=== PATIENT | female | born 2000 | race Caucasian/White ===

== ENCOUNTER 2024-05-07 11:52 | Emergency (ER) | payer MEDICAID, SELFPAY ==
--- NOTE | 2024-05-07 | ECG_ITS ---
Test Reason : DIZZY Blood Pressure : */* mmHG Vent. Rate : 64 BPM Atrial Rate : 64 BPM P-R Int : 144 ms QRS Dur : 100 ms QT Int : 388 ms P-R-T Axes : 50 23 26 degrees QTcB Int : 400 ms Normal sinus rhythm Cannot rule out Anterior infarct , age undetermined Abnormal ECG No previous ECGs available Referred By: Generic ED Physician Electronically Signed By: COLETTE LAMAS
[2024-05-07 12:19] VITALS: BP 142/85; PULSE 64; RESP 18; TEMP 37.1; O2SAT 99; BMI 38.7
--- NOTE | 2024-05-07 12:24 | ED_ITS ---
HPI - General Adult General Chief complaint: Dizziness Stated complaint: Dizziness, high BP Related Data Allergies Allergy/AdvReac Type Severity Reaction Status Date / Time No Known Allergies Allergy Verified 05/07/24 12:21 [facility] Social History Social History Advance Directives: No Advance Directives Information Provided: No Physical Exam ED Vital Signs: Vital Signs - 24 hr 05/07/24 12:19 Temperature 98.8 F Pulse Rate 64 Respiratory Rate 18 Blood Pressure 142/85 H Pulse Oximetry 99 Oxygen Delivery Method Room Air BMI result Body Mass Index 38.7 Course Course Course Narrative: This is a rapid medical exam performed by Raina Richter PA-C. 23-year-old female with a history of depression who presents with dizziness. Patient states she was not feeling well this morning, she felt dizzy and lightheaded. Patient states she had a low-grade temperature. Denies recent illness, nausea vomiting diarrhea or fever. We will be screening basic labs, and a viral swab. The patient is stable and can return to the waiting room pending her full medical assessment. Medical Decision Making Lab Data 05/07/24 12:37 05/07/24 12:37 Labs: Lab Results 05/07/24 Range/Units 12:37 WBC 7.1 (4.8-10.8) X10*3/uL RBC 4.87 (4.20-5.50) X10*6/uL Hgb 15.2 (12.0-16.0) g/dl Hct 43.2 (37.0-47.0) % MCV 88.7 (80.0-98.0) fL MCH 31.2 (27.0-33.0) pg MCHC 35.2 H (31.0-35.0) g/dl RDW 12.3 (11.0-16.0) % Plt Count 244 (160-400) X10*3/uL MPV 10.7 (9.4-12.3) fL Immature Gran % (Auto) 0.1 (0.0-0.4) % Neut % (Auto) 56.7 (45-73) % Lymph % (Auto) 33.1 (20-40) % Schleicher % (Auto) 7.0 (2-11) % Eos % (Auto) 2.4 (0-4) % Baso % (Auto) 0.7 (0-2) % Lymph # (Auto) 2.4 (1.2-4.9) X10*3/uL Schleicher # (Auto) 0.5 (0.1-1.2) X10*3/uL Eos # (Auto) 0.2 (0.0-0.4) X10*3/uL Baso # (Auto) 0.1 (0.0-0.2) X10*3/uL Abs Immat Gran (auto) 0.01 (0.00-0.03) X10*3/uL Absolute Neuts (auto) 4.0 (2.0-8.3) x10*3/uL Absolute Nucleated RBC 0.000 (0.0-0.012) X10*3/uL Nucleated RBC % (auto) 0.0 (0.0-0.2) /100WBC Sodium 139 (135-145) mmol/L Potassium 4.1 (3.3-5.1) mmol/L Chloride 107 (96-108) mmol/L Carbon Dioxide 25 (22-29) mmol/L Anion Gap 11 L (12-20) BUN 12 (9-16) mg/dL Creatinine 0.75 (0.5-1.4) mg/dL Estim Creat Clear Calc 123.9 Estimated GFR > 60 Random Glucose 88 (60-115) mg/dL Calcium 10.0 (8.4-10.2) mg/dL Magnesium 2.0 (1.6-2.6) mg/dL Total Bilirubin 1.1 H (0.0-1.0) mg/dL AST 15 (5-31) U/L ALT 15 (0-31) U/L Alkaline Phosphatase 72 (39-117) U/L Total Protein 7.9 (6.5-8.0) g/dL Albumin 4.3 (3.5-5.0) g/dL Beta HCG, Quant < 2 mIU/mL Influenza Type A (PCR) NEGATIVE (Negative) Influenza Type B (PCR) NEGATIVE (Negative) RSV RNA Qual (PCR) NEGATIVE (Negative) SARS-CoV-2 RNA (RT-PCR) NEGATIVE (Negative) Discharge Plan Discharge Clinical Impression: Dizziness Patient Disposition: Left W/O Completing Treatment Discharge Date/Time: 05/07/24 20:25
[2024-05-07 12:42] LABS: MANUAL DIFF FLAG NO
[2024-05-07 12:43] LABS: Basophils Absolute Auto 0.1 X10*3/uL (0.0-0.2); Basophils Percent Auto 0.7 % (0-2); Eosinophils Absolute Auto 0.2 X10*3/uL (0.0-0.4); Eosinophils Percent Auto 2.4 % (0-4); Hematocrit 43.2 % (37.0-47.0); Hemoglobin 15.2 g/dl (12.0-16.0); Imm Gran Abs Auto 0.01 X10*3/uL (0.00-0.03); Imm Gran Pct Auto 0.1 % (0.0-0.4); Lymphocytes Absolute Auto 2.4 X10*3/uL (1.2-4.9); Lymphocytes Percent Auto 33.1 % (20-40); Mean Corpuscular HGB Conc 35.2 g/dl (31.0-35.0); Mean Corpuscular Hemoglobin 31.2 pg (27.0-33.0); Mean Corpuscular Volume 88.7 fL (80.0-98.0); Mean Platelet Volume 10.7 fL (9.4-12.3); Monocytes Absolute Auto 0.5 X10*3/uL (0.1-1.2); Neutrophils Percent Auto 56.7 % (45-73); Platelet Count 244 X10*3/uL (160-400); Red Blood Count 4.87 X10*6/uL (4.20-5.50); Red Cell Distribution Width 12.3 % (11.0-16.0); White Blood Count 7.1 X10*3/uL (4.8-10.8)
[2024-05-07 13:05] LABS: Alanine Aminotransferase 15 U/L (0-31); Albumin Level 4.3 g/dL (3.5-5.0); Alkaline Phosphatase 72 U/L (39-117); Anion Gap 11 (12-20); Aspartate Amino Transferase 15 U/L (5-31); Bilirubin Total 1.1 mg/dL (0.0-1.0); Blood Urea Nitrogen 12 mg/dL (9-16); Carbon Dioxide 25 mmol/L (22-29); Chloride 107 mmol/L (96-108); Creatinine Clr Calc Pharmacy 123.9; Estimated Glomerular Filt Rate > 60; Glucose Random 88 mg/dL (60-115); HCG Quantitative < 2 mIU/mL; Potassium 4.1 mmol/L (3.3-5.1); Sodium 139 mmol/L (135-145); Total Protein 7.9 g/dL (6.5-8.0)
[2024-05-07 13:26] LABS: Influenza A PCR NEGATIVE (Negative); Influenza B PCR NEGATIVE (Negative); Resp Syncy Virus RNA Qual PCR NEGATIVE (Negative); SARS COV2 PCR INHOUSE NEGATIVE (Negative)
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
--- OUTSIDE RECORDS SUMMARY | 2024-05-07 20:16 | XMS_ITS | Encounter Summary ---
Author Organization [facility] Address [address] [place] [address] Care Team Providers Care Banjo Repair Person Name Role Phone Stella Jara MD Primary Care Pr ovider Encounter Details Date Type Department Care Team (Late st Contact Info) Description 05/07/2024 Nurse Triage Adult Medicine [address] [phone] Ilana Dillard, RN Social History Tobacco Use Types Packs/Day Years Used Date Smoking Tobacco: Never Smokeless Tobacco: Never Alcohol Use Standard Drinks/Week Comments Yes 0 (1 standard drink = 0.6 oz pur e alcohol) Comments Unknown Sex and Gender Information Value Date Recorded Sex Assigned at Not on file Legal Sex Female 10:04 PM EST Gender Identity Not on file Sexual Orientation Not on file documented as of this encounter Progress Notes * Ilana Dillard RN - 05/07/2024 11:15 AM EST Noted. * Stella Jara MD - 05/07/2024 11:05 AM EST Agree with ER evaluation. Thank you * Ilana Dillard RN - 05/07/2024 10:51 AM EST Pt received in the holding unit. She is complaining of dizziness upon waking up this morning. No s/s of URI. She reports diarrhea. Her VS as of 10:50 am are as follows: 143/93, 67, 100% RA, 16, 99.5 degrees. She was instructed to go to the ER for further evaluation and treatment. She is in agreement with this plan and states she will [facility] to [facility]. Her Mom or her friend will pick her up and bring her to the ER. Reason for Disposition SEVERE dizziness (e.g., unable to stand, requires support to walk, feels like passing out now) Answer Assessment - Initial Assessment Questions 1. DESCRIPTION: Describe your dizziness. She states when she woke up this morning she felt light headed. 2. LIGHTHEADED: Do you feel lightheaded? (e.g., somewhat faint, woozy, weak upon standing) She states she feels weak and is reporting lethargy 3. VERTIGO: Do you feel like either you or the room is spinning or tilting? (i.e., vertigo) No 4. SEVERITY: How bad is it? Do you feel like you are going to faint? Can you stand and walk? - MILD: Feels slightly dizzy, but walking normally. - MODERATE: Feels unsteady when walking, but not falling; interferes with normal activities (e.g., school, work). - SEVERE: Unable to walk without falling, or requires assistance to walk without falling; feels like passing out now. Moderate 5. ONSET: When did the dizziness begin? This AM 6. AGGRAVATING FACTORS: Does anything make it worse? (e.g., standing, change in head position) Standing. Sitting in front of computer 7. HEART RATE: Can you tell me your heart rate? How many beats in 15 seconds? (Note: Not all patients can do this.) HR 77 8. CAUSE: What do you think is causing the dizziness? (e.g., decreased fluids or food, diarrhea, emotional distress, heat exposure, new medicine, sudden standing, vomiting; unknown) Decreased food, new medication (Sertraline), emotional distress, diarrhea 9. RECURRENT SYMPTOM: Have you had dizziness before? If Yes, ask: When was the last time? Whathappened that time? No 10. OTHER SYMPTOMS: Do you have any other symptoms? (e.g., fever, chest pain, vomiting, diarrhea,bleeding) Diarrhea 3 times in past 24 hours. Normally has 1 BM in 24 hours. T 99.5 11. : Is there any chance you are ? When was your last menstrual period? No. Her LMP was 04/17/24 Protocols used: Dizziness - [id number] documented in this encounter Plan of Treatment Not on file documented as of this encounter Visit Diagnoses Not on filedocumented in this encounter Care Teams Banjo Repair Person Relationship Specialty Start Date End Date Stella Jara MD PCP - General 02/27/23 documented as of this encounter
== END 2024-05-07 20:25 | disposition left against medical advice (07) ==
LOC: HO.ED 20:14
PROVIDERS: Physician Assistant Medical; Emergency Provider Emergency Medicine; PCP Family Medicine
DX: R42 Dizziness and giddiness (principal); R03.0 Elevated blood-pressure reading, without diagnosis of hypertension; R94.31 Abnormal electrocardiogram [ECG] [EKG]; Z03.818 Encounter for observation for suspected exposure to other biological agents ruled out; Z79.899 Other long term (current) drug therapy
CPT/HCPCS: 0241U; 36415; 80053; 83735; 84702; 85025; 93005; 99283

== ENCOUNTER → 2024-05-07 12:03 | Outpatient (BNV) | payer MEDICAID, SELFPAY | PROVIDERS: PCP Family Medicine; Visit Provider Internal Medicine | DX: R94.31 Abnormal electrocardiogram [ECG] [EKG] (principal); R42 Dizziness and giddiness | CPT/HCPCS: 93010 ==

== ENCOUNTER → 2024-12-09 12:45 | Outpatient (BNV) | payer OTHER, SELFPAY | PROVIDERS: Visit Provider Psychiatry & Neurology Psychiatry | DX: F33.1 Major depressive disorder, recurrent, moderate (principal); F98.8 Other specified behavioral and emotional disorders with onset usually occurring in childhood and adolescence | CPT/HCPCS: 99499 ==

== ENCOUNTER 2024-12-31 12:45 | Outpatient (RCR) | payer OTHER, SELFPAY ==
[2024-12-08 11:21] VITALS: BP 122/80; PULSE 60; TEMP 36.7
[2024-12-08 11:25] VITALS: BMI 40.6
--- NOTE | 2024-12-08 15:32 | PC.ADMIT ---
Patient is a 24 year old single female who was referred to [facility] by her brother who previously attended [facility]. Patient reports she is struggling with sxs of depression and anxiety. She reports work related stresses along with family stresses and grieving the loss of her brother. Patient lives with her mother who patient reports is somewhat supportive. She is taking a CHANG from work to work on her mental health. Patient is alert and oriented x4. She is calm and cooperative. Patient presents with depressed mood and anxious affect. She denied Si, no HI she was given a copy of her safety plan if needed. Medications updated with patient and patient's pharmacy. She reports taking medications as prescribed.
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
--- NOTE | 2024-12-09 15:15 | HO.PHP ---
Client's case was opened and reviewed in teams.
--- NOTE | 2024-12-13 08:50 | HO.PHP ---
PHP admin, Yazmin, informed the team that Chrissy will not be in attendance to program due to feeling unwell. There were no safety concerns presented at the time of the call.
--- NOTE | 2024-12-24 19:15 | HO.PHPPROGNO ---
Subjective Subjective Date of Service: 12/24/24 Reason For Visit: anxiety,depression Interim History: Here for depression and anxiety. Recent increase to ZOloft in early December. No noted improvement yet. Finds ZOloft suppresses appetite. Sleep is fair but stable, regularly gets 5-6 hours of sleep. Takes MPH ER daily, dakes PRN infrequently, does not feel this affects sleep. Denies any suicidal thoughts or thoughts of shanna kitchen on life. Anxiety persists both cognitive and somatic anxiety. Denies any issues with her physical health. regular marijuana use, most evenings. No interim alcohol. Denies any illicit substanse use. Sees OP psych provider at end of Dec Medication Compliance: Yes Side effects from medications: No Attending Groups: Yes Review of Systems Acute medical concerns: No Mental Status Exam Mental Status Exam Narrative: Chrissy was seen for the evaluation today. She is alert, oriented and pleasant. Normal speech. Good eye contact. Affect is appropriate and constricted. No acute signs of psychosis. No restlessness. Denies any SI/HI. Cognitively is intact. She is able to move all limbs. No gait abnormalities. Judgment is intact Diagnostics Vital Signs (24Hr): BMI result Body Mass Index 40.6 Assessment & Plan Assessment & Plan (1) Major depression, recurrent: Status: Acute Code(s): F33.9 - Major depressive disorder, recurrent, unspecified (2) Attention deficit disorder (ADD): Status: Acute Code(s): F98.8 - Other specified behavioral and emotional disorders with onset usually occurring in childhood and adolescence Plan continue PHP start Wellbutrin XL 150 mg qam start guanfacine ER 1 mg qam continue MPH ER 36 mg qam continue MPH IR 5 mg qd prn focus/attn continue sertraline 50 mg qd continue regular medications for now Routine lab work reviewed in emr (04/2024) EKG, routine for baseline QTc for medication considerations as indicated UDS as indicated VS reviewed (12/08): afebrile, BP 122/80;?60 bpm engage in milieu therapy Continue to monitor Patient educated on: diagnosis, medication risk/benefits and substance abuse Informed Consent: understands Reason for contiued partial hosp. stay Substantial Risk for: med/psych decompensation Certification I certify that partial hospital treatment is medically necessary due to the symptoms and problems resulting from the patient's mental illness and the failure to treat the patient at the partial hospital level of care would likely result in the patient requiring inpatient psychiatric care which could not be prevented at a less intensive level of care. Total time managing care of this patient today _30___ minutes. Discharge Plan Discharge Attending provider: Billie Lin Medications: New bupropion HCl [Wellbutrin XL] 150 mg tablet extended release 24 hr 150 mg PO QAM Qty: 14 0RF guanfacine 1 mg tablet extended release 24 hr 1 mg PO DAILY Qty: 14 0RF Continued sertraline 50 mg tablet 25 - 50 mg PO QAM Rx Instructions: TAKE 1/2-1 TABLET BY MOUTH EVERY MORNING DIRECTED methylphenidate HCl 36 mg tablet extended release 24hr 36 mg PO QAM No Action methylphenidate HCl 5 mg tablet 5 mg PO DAILY Print Language: Telugu
--- NOTE | 2024-12-31 22:46 | P.PNPSP_ITS ---
Subjective Subjective Date of Service: 12/31/24 Reason For Visit: anxiety,depression Interim History: Patient seen for follow-up, anticipating discharge at the end of program today.? Feeling good. Calm, stable . She will be following up with her outpatient provider Gwyn Spence on 01/16. Reports no acute issues or concerns. Medication compliant, medications well- tolerated. Denies any adverse effects.? Mood is stable.? Denies any hopelessness or SI. Denies thoughts of harming self or others at this time. Denies any aggressive ideation or HI. Denies any paranoia or AH or VH. Sleep, appetite, energy stable. Mental Status Exam Mental Status Exam Narrative: Alert, oriented, in no acute distress. Calm, cooperative. Mood stable, affect appropriate. Speech normal. Thought process linear, coherent, more goal- directed. Thought content related to stressors, future-oriented, denies any helplessness, hopelessness or SI.? No aggressive ideation or HI. No paranoia or delusional content elicited. No evidence of psychosis. Insight and judgment fair-good. Diagnostics Vital Signs (24Hr): BMI result Body Mass Index 40.6 Assessment & Plan Assessment & Plan (1) Major depression, recurrent: Status: Acute Code(s): F33.9 - Major depressive disorder, recurrent, unspecified (2) Attention deficit disorder (ADD): Status: Acute Code(s): F98.8 - Other specified behavioral and emotional disorders with onset usually occurring in childhood and adolescence Plan Discharge from [facility] Continue regular medications? Refills sent to pharmacy Will defer further medication management to outpatient provider *Safety plan reviewed *Discharge diagnoses, treatment course, discharge plan have been reviewed with patient (including medication regime, medication management, potential side effects) as well as treatment rationale were also revisited *Discharge paperwork signed and given to patient, copy sent for scanning to chart Patient educated on: diagnosis and medication risk/benefits Informed Consent: understands Reason for contiued partial hosp. stay Substantial Risk for: stable for discharge Certification I certify that partial hospital treatment is medically necessary due to the symptoms and problems resulting from the patient's mental illness and the failure to treat the patient at the partial hospital level of care would likely result in the patient requiring inpatient psychiatric care which could not be prevented at a less intensive level of care. Total time managing care of this patient today _30___ minutes. Discharge Plan Discharge Attending provider: Billie Lin Medications: New bupropion HCl [Wellbutrin XL] 150 mg tablet extended release 24 hr 150 mg PO QAM Qty: 14 0RF guanfacine 1 mg tablet extended release 24 hr 1 mg PO DAILY Qty: 14 0RF Continued sertraline 50 mg tablet 25 - 50 mg PO QAM Rx Instructions: TAKE 1/2-1 TABLET BY MOUTH EVERY MORNING DIRECTED methylphenidate HCl 36 mg tablet extended release 24hr 36 mg PO QAM No Action methylphenidate HCl 5 mg tablet 5 mg PO DAILY Patient Education: Depression (ED), Depression (DC) Print Language: Gibraltarian
== END 2024-12-31 23:59 | disposition home or self-care (01) ==
LOC: HO.PHPA 12:45
PROVIDERS: Visit Provider Psychiatry & Neurology Psychiatry
DX: F33.9 Major depressive disorder, recurrent, unspecified (principal); F98.8 Other specified behavioral and emotional disorders with onset usually occurring in childhood and adolescence; Z79.899 Other long term (current) drug therapy
CPT/HCPCS: 90791; 90853

== ENCOUNTER 2025-02-16 21:37 | Emergency (ER) | payer OTHER, SELFPAY ==
--- NOTE | ~2025-02-16 | XR_ITS ---
CLINICAL HISTORY: Fx friday,. worse pain 3 view right ankle Comparison: None provided Findings: There is a small ossific fragment along the lateral aspect of the talus as well as a 2nd small ossific fragment along the lateral aspect of the calcaneus. There is a curvilinear ossific density at the inferior aspect of the medial malleolus. No significant arthritic change or erosions. No ankle effusion. No radiopaque foreign body. Bimalleolar ankle swelling. Ankle mortise is in anatomic alignment. IMPRESSION: Suspect there are small avulsion fractures from the lateral talus, lateral calcaneus and the inferior aspect of the medial malleolus. This document has been electronically signed by: Miguel Reveles MD on 02/17/2025 01:06:17
[2025-02-16 21:40] VITALS: BP 137/81; PULSE 106; RESP 20; TEMP 36.1; O2SAT 100; BMI 40.2
[2025-02-16 23:23] VITALS: BP 130/76; PULSE 81; RESP 16; TEMP 36.5; O2SAT 96
--- OUTSIDE RECORDS SUMMARY | 2025-02-16 23:33 | XMS_ITS | Clinical Summary ---
Author Organization [facility] Address [address] [place] [address] Phone Care Team Providers Care Night Shift Supervisor Name Role Phone Stella Jara MD Primary [...] A RING FOR 7 DAYS 4 Active methylphenidate 36 mg ER tablet Take 1 tablet (36 mg total) by mouth 1 (one) time each day. 2 Active methylphenidate (RITALIN) 5 mg tablet Take 1 Tablet by mouth daily for 30 days. Q 3PM 2 Active traZODone (DESYREL) 50 mg tablet Take 1 tablet (50 mg total) by mouth at bedtime. 9 Active ibuprofen (ADVIL,MOTRIN) 800 mg tablet Take 1 Tab by mouth every 8 hours as needed for Pain. 7 Active sertraline (ZOLOFT) 50 mg tablet Take 1 tablet (50 mg total) by mouth 1 (one) time each day. 5 Active ergocalciferol (VITAMIN D-2) 1,250 mcg (50,000 unit) capsule Take 1 capsule (50,000 Units total) by mouth 1 (one) time per week. 8 capsule 5 Active Active Problems Problem Noted Date Diagnosed Date Elevated BP without diagnosis of hypertension Chlamydia infection 06/20/2023 Vitamin D deficiency 06/09/2023 [...] Encounters Date Type Department Care Team Description 12/16/2024 Telephone [facility] Cardiology [facility] [address] [place] [address] Stella Jara MD from Last 3 Months Immunizations Immunization Administration Dates Next Due DTaP (Infanrix) 6wks to less than 7yo ,11/14/2000,06/12/1999,04/06,01/16/1999 [id number] (Pentacel) 2mo to less than 5yo 02/26/2000,06/12/1999,04/06/1999,01/16 [...] yrs UPPER GASTROINTESTINAL ENDOSCOPY -2016 2017 PROCEDURE: MI UPPER GI ENDOSCOPY PERFORMED COLONOSCOPY 09/16/2019 PROCEDURE: [...] Date Smoking Tobacco: Never Smokeless Tobacco: Never Tobacco Cessation:Counseling Given: Not Answered Alcohol Use Standard Drinks/Week Comments Yes 0 (1 standard drink = 0.6 oz pur e alcohol) Comments No Sex and Gender Information Value Date Recorded Sex Assigned at Not on file Legal Sex Female 10:04 PM EST Gender Identity Not on file Sexual Orientation Not on file Obstetrics History Last Filed Vital Signs Vital Sign Reading Time Taken Comments Blood Pressure 140/88 05/26/2024 2:11 PM EDT Pulse 68 05/21/2024 11:57 AM EST Temperature 36.9 C (98.5 F) 05/21/2024 11:50 AM EST Respiratory Rate 14 05/21/2024 11:57 AM EST Oxygen Saturation 99% 05/21/2024 11:57 AM EST Inhaled Oxygen Concentration - - Weight 99.8 kg (220 lb) 05/26/2024 2:11 PM EDT Height 160 cm (5' 3 ) 05/26/2024 2:11 PM EDT Body Mass Index 38.97 05/26/2024 2:11 PM EDT Plan of Treatment Health Maintenance Due Date Last Done Comments Social Influencers of Health Screening 02/23/2022 Depression Screening 03/17/2024 05/15/2023 Colorectal Cancer Screening: Colonoscopy 09/15/2024 09/16/2019 COVID-19 Vaccine ( season) 2024 04/20/2021, 06/22/2020 Influenza Vaccine (#1) 2024 , 11/27/2022, 01/03/2016, Additional history exists Cervical Cancer Screening: Pap Smear 06/19/2026 06/20/2023, 06/20/2023, 01/24/2020 Cholesterol Screening (Lipid Panel) 06/05/2028 06/06/2023 DTaP,Tdap,and Td Vaccines (8 - Td or Tdap) 01/22/2031 01/22/2021, 10/31/2010, 11/29/2002, Additional history exists RSV Immunization Adult Patients (1 - 1-dose 75+ series) 2073 HIB Vaccines Completed 02/26/2000, 05/16, 04/06/1999, Additional [...] 5 Years) and At-Risk Patients (6 to 49 Years) Completed 04/19/2019, 02/26/2000, 11/27/1999 Gonorrhea/Chlamydia Screening Discontinued 08/27/2023 HIV Screening Completed 08/28/2023, 08/28/2023 Hepatitis C Screening Completed 08/28/2023 Meningococcal B Vaccine Aged Out No l onger eligible based on patient's age to complete this topic RSV Immunization Patients Under 20 months Aged Out No longer eligible based on patient's age to complete this topic Procedures Procedure Name Priority Date/Time Associated Diagnosis Comments HM HEPATITIS C SCREENING Routine 08/28/2023 HM HIV SCREENING Routine 08/28/2023 HM GONORRHEA/CHLAMYDIA SCRREENING Routine 08/27/2023 PAP SMEAR Routine 06/20/2023 LIPID PANEL Routine 06/06/2023 DEPRESSION SCREENING Routine 05/15/2023 COLONOSCOPY Routine 09/16/2019 from Last 3 Months or Most Recently Relevant to Health Maintenance Results * HIV Screening (08/28/2023) HIV Screening abstracted [facility] Provider MD HEALTH MAINTENANCE Final Result * Hepatitis C Screening (08/28/2023) Hepatitis C Screening abstracted [facility] Provider MD HEALTH MAINTENANCE Final Result * Gonorrhea/Chlamydia Screening (08/27/2023) Gonorrhea/Chla mydia Screening abstracted [facility] Provider HEALTH MAINTENANCE Final Result * Pap smear (06/20/2023) 06/20/2023 Narrative HISTORICAL TESTING LAB RESULTING AGENCY - 06/25/2023 11:25 AM EDT [id number] THINPREP PAP, IMAGED: NEGATIVE FOR SQUAMOUS INTRAEPITHELIAL LESION AND MALIGNANCY RONY KUNZ(ASCP) (CASE ELECTRONICALLY SIGNED 06 25 2023) ADEQUACY: SATISFACTORY ENDOCERVICAL/TRANSFORMATION ZONE COMPONENT ABSENT. SOURCE: THINPREP PAP HPV IF ASCUS, CERVICAL, IMAGED CLINICAL INFORMATION: HPV IF DIAGNOSIS OF ASCUS. PAP HX NEGATIVE, [Z01.419]. Aracelis [facility] LAB CYTOLOGY ORDERABLES Fin al Result HISTORICAL TESTING LAB RESULTING AGENCY * Lipid panel (06/06/2023) LDL/HDL Ratio 2 0 - 4 Triglycerides 57 0 - 150 mg/dL Cholesterol 130 0 - 200 mg/dL HDL 65 >=40 mg/dL LDL Cholesterol 54 0 - 100 mg/dL Blood Venous blood specimen / Unknown Historical Provider LAB BLOOD ORDERABLES Yu l Result * Depression Screening (05/15/2023) Depression Screening abstracted Historical Provider HEALTH MAINTENANCE Final Result * Colonoscopy (09/16/2019) Colonoscopy abstracted, no interpretation Anatomical Region Laterality Modality Other Historical Provider HEALTH MAINTENANCE Final Result from Last 3 Months or Most Recently Relevant to Health Maintenance Insurance [facility] Care Teams Night Shift Supervisor Relationship Specialty Start Date End Date Stella Jara MD [address] [place] [address] PCP - General 02/27/23
--- OUTSIDE RECORDS SUMMARY | 2025-02-16 23:33 | XMS_ITS | Clinical Summary ---
Author Organization [facility] Address [address] [place] [address] Care Team Providers Care Histology Manager Name Role Phone Unavailable Primary Care Provider Unavailabl e Social History Tobacco Use Types Packs/Day Years Used Date Smoking Tobacco: Never Assessed Comments Unknown Sex and Gender Information Value Date Recorded Sex Assigned at Not on file Legal Sex Female 1:46 PM EST Gender Identity Not on file Sexual Orientation Not on file Plan of Treatment Health Maintenance Due Date Last Done Comments Depression Screening 1998 HIV Screening 1998 Lipid Panel 1998 Disability Screening 1998 Alcohol/Substance Use Screening 2010 Tobacco Screening 2010 Family Planning (PISQ) 2013 Hepatitis C Screening 2016 Pap Smear 11/13/2019 COVID-19 Vaccine ( season) 2024 Influenza Vaccine (#1) 2024 , 01/03/2016, 04/26/2015 DTaP/Tdap/Td Vaccines (8 - Td or Tdap) 01/22/2031 01/22/2021, 10/31/2010, 11/29/2002, Additional history exists Zoster Vaccines (1 of 2) 2048 RSV Patients and Patients Aged 60 years or older (1 - 1-dose 75+ series) 2073 HIB Vaccines Completed 02/26/2000, 05/16, 04/06/1999, Additional history exists Hepatitis B Vaccines Completed 11/14/2000, 09/12/1999, 06/12/1999 IPV Vaccines Completed 11/29/2002, 02/14, 06/12/1999, Additional history exists HPV Vaccines Completed 03/04/2012, 12/16, 10/31/2010 Hepatitis A Vaccines Completed 04/07/2013, 11/01/19 11 Meningococcal Vaccine Completed 04/26/2015, 011 Pneumococcal Vaccine: Pediatrics (0 to 5 Years) and At-Risk Patients (6 to 49) Years Aged Out 04/19/2019, 02/26/2000, 11/27/1999 No longer eligible based on patient's age to complete this topic Meningococcal B Vaccine Aged Out No l onger eligible based on patient's age to complete this topic RSV under 20 months Aged Out No longe r eligible based on patient's age to complete this topic Rotavirus Vaccines Aged Out No longer eligible based on patient's age to complete this topic
--- OUTSIDE RECORDS SUMMARY | 2025-02-16 23:33 | XMS_ITS ---
Author Name [facility] Organization Unknown Care Team Organization Name Specialty Phone Email Start Date End Da te [facility] Termed, PROVIDER Primary Care 01/22/202210/15
--- NOTE | 2025-02-17 00:40 | ED.LOWEXIN ---
HPI - Extremity Injury (Lower) General Chief Complaint: Extremity Injury, Lower Stated Complaint: right foort injury Time Seen by Provider: 02/16/25 23:22 History of Present Illness ED Provider: soha HPI Narrative: 24-year-old female with inversion rolling of the ankle fell down a few steps. No other injuries. She was seen at urgent care, placed in a boot. She's primarily coming in for lack of pain control at home with Tylenol and ibuprofen. She's requesting expedited orthopedic follow-up. She presents with a disk in hand. Related Data Home Medications ?Medication ?Instructions ?Recorded ?Confirmed methylphenidate HCl 36 mg 36 mg PO QAM 12/08/24 12/08/24 tablet,extended release 24 hr methylphenidate HCl 5 mg tablet 5 mg PO DAILY 12/08/24 12/08/24 sertraline 50 mg tablet 25 - 50 mg PO QAM 12/08/24 12/08/24 Previous Rx's ?Medication ?Instructions ?Recorded bupropion HCl 150 mg 24 hr tablet, 150 mg PO QAM #14 tabs 12/24/24 extended release (Wellbutrin XL) guanfacine 1 mg tablet,extended 1 mg PO DAILY #14 tabs 12/24/24 release 24 hr morphine 15 mg immediate release 15 mg PO BID PRN pain #5 tabs 02/17/25 tablet Allergies Allergy/AdvReac Type Severity Reaction Status Date / Time No Known Allergies Allergy Verified 02/16/25 21:44 [facility] Past Medical History Medical History (Updated 02/18/25 @ 00:01 by Background Daemon) No known health problems Social History Social History Household Members: Family Patient Tobacco Use Status: Former Tobacco user Tobacco use type: Cigarette Substance Use Type: Marijuana Physical Exam Exam: Exam: General: awake, alert, oriented, looks well. Skin: intact MSK: right ankle, mild swelling, bimalleolar tenderness, minimal swelling of the dorsolateral foot. Well perfused, 2+ DP and PT pulses, no skin breaks, no instability of the ankle, calcaneus mildly tender. Vital Signs: Vital Signs: Last Vital Signs Temp 97.7 F 02/17/25 01:31 Pulse 81 02/17/25 01:31 Resp 16 02/17/25 01:31 BP 130/76 02/17/25 01:31 Pulse Ox 96 02/17/25 01:31 O2 Del Method Room Air 02/17/25 01:31 BMI result Body Mass Index 40.2 Medications Administered Discontinued Medications Generic Name Dose Route Start Last Admin Trade Name Shyann PRN Reason Stop Dose Admin Ibuprofen 600 mg 02/17/25 00:28 02/17/25 01:02 Ibuprofen 600 Mg Tablet PO 02/17/25 00:29 600 mg ONCE ONE Administration Morphine Sulfate 15 mg 02/17/25 00:28 02/17/25 01:02 Morphine Sulfate Immed Release 15 Mg Tablet PO 02/17/25 00:29 15 mg ONCE ONE Administration Medical Decision Making Medical Decision Making MDM Narrative: Medical Decision Making: [age] female with injury from work twisted rolled right ankle. X-rays repeated today because of increasing pain. Minimal bimalleolar chip fractures seen. Stable intact mortise. Neurovascularly intact right lower extremity. No calf tenderness no objective edema Preliminary Favored Differential Diagnosis: Ankle fracture, ankle sprain among additional considered etiologies Testing Interpreted Independently: ?See below for details Radiology or Lab testing Results Reviewed: ?See below for details Consults: ?See below for details Independent Historians/External Chart Reviews: ?See below for details Social Determinants of Health Impacting MDM/Planning: ?See below for details Discharge Plan Discharge Clinical Impression: Ankle fracture Patient Disposition: Home, Self-Care Instructions: Ankle Fracture (DC) Additional Instructions: Your ankle fracture is minimal and stable. Continue wearing the boot call our orthopedics for follow up I recommend using ibuprofen 600-800 mg every 6 hours as needed neck to extend beyond a week of daily use. Ice elevate. Morphine only as needed for severe pain or before bed Prescriptions: New morphine 15 mg tablet 15 mg PO BID PRN (Reason: pain) Qty: 5 0RF Rx Instructions: Partial Fill upon patient request. No Action methylphenidate HCl 5 mg tablet 5 mg PO DAILY sertraline 50 mg tablet 25 - 50 mg PO QAM Rx Instructions: TAKE 1/2-1 TABLET BY MOUTH EVERY MORNING DIRECTED methylphenidate HCl 36 mg tablet extended release 24hr 36 mg PO QAM bupropion HCl [Wellbutrin XL] 150 mg tablet extended release 24 hr 150 mg PO QAM Qty: 14 0RF guanfacine 1 mg tablet extended release 24 hr 1 mg PO DAILY Qty: 14 0RF Stand Alone Forms: Work/School Release Interventions: ED Discharge Assessment Last Done: 02/17/25 01:31 Discharge Date/Time: 02/17/25 01:32 Print Language: Andorran
[2025-02-17] MEDS: Morphine Sulfate Immed Release 15 MG TABLET PO (01:02)
[2025-02-17 01:31] VITALS: BP 130/76; PULSE 81; RESP 16; TEMP 36.5; O2SAT 96
== END 2025-02-17 01:32 | disposition home or self-care (01) ==
PROVIDERS: Emergency Provider Emergency Medicine
DX: S92.144A Nondisplaced dome fracture of right talus, initial encounter for closed fracture (principal); W10.9XXA Fall (on) (from) unspecified stairs and steps, initial encounter; Y93.9 Activity, unspecified; Y92.9 Unspecified place or not applicable
CPT/HCPCS: 73610; 99283; 99284

== ENCOUNTER → 2025-02-17 00:28 | Outpatient (BNV) | payer OTHER, SELFPAY | PROVIDERS: Emergency Provider Emergency Medicine; Visit Provider Radiology Diagnostic Radiology | DX: M25.571 Pain in right ankle and joints of right foot (principal) | CPT/HCPCS: 73610 ==

== ENCOUNTER 2025-03-01 12:50 | Outpatient (AMB) | payer OTHER, SELFPAY ==
--- NOTE | 2025-03-01 12:53 | MHC.OFFVIS ---
Intake Visit Reasons: ED - right ankle injury, DOI 02/14/25 Intake Note: Chrissy is a 24 year old female who presents today for a fracture care appointment of her RT ankle injury DOI 02/14/25. Patient reports she was walking down the stairs at work and she doesn't know if her knee gave out or popped out of place which made her fall down the stairs. She mentions that her pain is on the lateral aspect of the foot and ankle. Allergies No Known Allergies Allergy (Verified 03/01/25 12:53) HPI Comments Details: History of Present Illness The patient is a 24 year old female presenting for evaluation of a right ankle injury that occurred on February 14. She reports falling down the stairs. Patient presented to an urgent care where she was told she had small avulsion fractures. She was given a short walking boot and crutches. The patient has been non-weight bearing since the injury. She continues to experience significant swelling and describes the ankle as feeling tight . She has been managing her pain with ibuprofen 600mg po every 8 hours. Pain Description - Onset: The pain began after a fall down the stairs on February 14. - Location: Pain is located in her right heel and another unspecified area of the ankle. - Quality: The sensation is described as the joint feeling tight . - Associated Symptoms: The pain is associated with significant swelling. - Interference with Function: The pain interferes with sleep. [facility] Medical History (Updated 02/18/25 @ 00:01 by Background Daemon) No known health problems Social History Household Members: Family Patient Tobacco Use Status: Former Tobacco user Tobacco use type: Cigarette Substance Use Type: Marijuana Review of Systems Narrative Review of Systems - Musculoskeletal: Reports right ankle pain, severe swelling, and a sensation of the joint feeling tight and locked . - Neurological: Reports a tingly sensation in the foot. - Constitutional: Reports difficulty sleeping due to pain. Const All systems reviewed & are unremarkable except as noted in HPI and below Physical Exam Exam Exam: Physical Exam - Right Lower Extremity: Inspection reveals moderate edema of the ankle and foot. - There is tenderness to palpation over all anatomical landmarks of the ankle, proximal foot and Achilles. - Achilles tendon is palpable with no obvious defect. - Active range of motion is limited but she is able to demonstrate slight dorsiflexion and plantar flexion. - She is able to move all digits. - Sensation to light touch is intact. - Pedal pulse intact. Const General: cooperative, healthy appearing and no acute distress Resp Effort & Inspection: normal respiratory effort and able to speak in complete sentences Psych Appearance: grossly normal Mental Status: mental status grossly normal Attitude: cooperative Assessment & Plan Assessment & Plan (1) Ankle fracture: Code(s): S82.899A - Other fracture of unspecified lower leg, initial encounter for closed fracture Category: Medical Plan 1. Right Ankle Fracture With Moderate Edema The patient's significant pain and swelling are out of proportion to the avulsion fractures noted on her x-rays, raising concern for a possible occult fracture. The plan is to obtain a stat CT scan of the right ankle to further evaluate the bone integrity. The patient will be placed in a taller walking boot which was fit to the patient off the shelf today to minimize levering at the ankle Which may be increasing her pain. The patient is instructed to remain strictly non-weight bearing until the CT results are reviewed. For swelling management, she is advised to elevate her leg above the level of her heart while lying down. For pain control, she can increase her ibuprofen dose to 800 mg up to four times daily and may alternate with Tylenol. A work excuse note and a prescription for a shower chair will be provided. Patient will follow up after the CT scan is obtained, sooner if needed. X-rays of the right ankle obtained on 02/17/2025 reveal small avulsion fractures from the lateral talus, lateral calcaneus and the inferior aspect of the medial malleolus. Consent: Patient was informed and verbally consented to the use of an ambient scribe for clinic note documentation during this visit. Orders: Orders CT ankle RT wo IV con Today S82.899A - Other fracture of unspecified lower leg, initial encounter for closed fracture Medications: New Shower Chair (Chair, shower) As directed 1 ea 0RF right ankle fracture Coding Level of Care Code New Pt Level 4 (23813) Add On Problem Visit Only Diagnoses Ankle fracture S82.899A
--- OUTSIDE RECORDS SUMMARY | 2025-03-01 16:40 | XMS_ITS | Clinical Summary ---
Author Organization [facility] Address [address] [place] [address] Phone Care Team Providers Care Shredded Filler Cigar Maker Machine Name Role Phone Setlla Jara MD Primary Care Pr ovider Allergies [...] Type Department Care Team Description 12/16/2024 Telephone [facility] Cardiology [facility] [address] [place] [address] Stella Jara MD from Last 3 Months Immunizations Immunization Administration Dates Next Due DTaP (Infanrix) 6wks to less than 7yo ,11/14/2000,06/12/1999,04/06,01/16/1999 [id number] (Pentacel) 2mo to less than 5yo 02/26/2000,06/12/1999,04/06/1999,01/16 [...] yrs UPPER GASTROINTESTINAL ENDOSCOPY -2016 2017 PROCEDURE: [place] UPPER GI ENDOSCOPY PERFORMED COLONOSCOPY 09/16/2019 PROCEDURE: [...] on file Sexual Orientation Not on file Last Filed Vital Signs Vital Sign Reading [...] * HIV Screening (08/28/2023) HIV Screening abstracted [facility] Provider MD HEALTH MAINTENANCE Final Result * Hepatitis C Screening (08/28/2023) Hepatitis C Screening abstracted [facility] Provider HEALTH MAINTENANCE Final Result * Gonorrhea/Chlamydia Screening (08/27/2023) Gonorrhea/Chla mydia Screening abstracted [facility] Provider HEALTH MAINTENANCE Final Result * Pap smear (06/20/2023) 06/20/2023 Narrative HISTORICAL TESTING LAB RESULTING AGENCY - 06/25/2023 11:25 AM EDT [id number] THINPREP PAP, IMAGED: NEGATIVE FOR SQUAMOUS INTRAEPITHELIAL [...] Most Recently Relevant to Health Maintenance Insurance [facility] Care Teams Shredded Filler Cigar Maker Machine Relationship Specialty Start Date End Date Stella Jara MD [address] [place] [address] PCP - General 02/27/23
--- OUTSIDE RECORDS SUMMARY | 2025-03-01 16:40 | XMS_ITS | Clinical Summary ---
Author Organization [employer] Address [address] [facility] [address] [place] [address] Care Team Providers Care Cigarette Roller Name Role Phone Unavailable Primary Care Provider [...]
== END 2025-03-01 14:02 | disposition home or self-care (01) ==
LOC: HO.HOS 12:51
PROVIDERS: Visit Provider Physician Assistant
DX: S82.891A Other fracture of right lower leg, initial encounter for closed fracture (principal)
CPT/HCPCS: 99204; G2211

== ENCOUNTER → 2025-03-01 12:50 | Outpatient (BNVA) | payer OTHER, SELFPAY | PROVIDERS: Visit Provider Physician Assistant | DX: S92.151A Displaced avulsion fracture (chip fracture) of right talus, initial encounter for closed fracture (principal); S92.001A Unspecified fracture of right calcaneus, initial encounter for closed fracture; S82.51XA Displaced fracture of medial malleolus of right tibia, initial encounter for closed fracture; W10.8XXA Fall (on) (from) other stairs and steps, initial encounter; Y92.89 Other specified places as the place of occurrence of the external cause; Y93.9 Activity, unspecified; Y99.0 Civilian activity done for income or pay | CPT/HCPCS: 99202 ==

== ENCOUNTER 2025-03-07 10:16 | Outpatient (REF) | payer OTHER, SELFPAY ==
--- NOTE | ~2025-03-07 | CT_ITS ---
Examination: CT Ankle Rt Wo Iv Con HISTORY: S82.899A - Other fracture of unspecified lower leg, subacute injury follow-up COMPARISON: X-ray on 02/17/2025 TECHNIQUE: Axial CT was performed through a lower extremity joint by imaging from the distal lower leg through the base of the metatarsals of the right ankle without contrast. Coronal and sagittal reformatted images were generated from the original axial data set. ALARA: The examination used one or more of the following radiation dose reduction techniques: Automated exposure control, iterative reconstruction, and/or adjustment of mA and/or KV. FINDINGS: BONES: Small avulsion fractures noted in the inferior tip of medial malleolus. There are 2 small cortical fragments adjacent to the lateral process of talus that could represent acute avulsion fractures. There are small bony fragments adjacent the anterior dorsal lateral calcaneus and along the dorsal margin of the cuboid adjacent calcaneocuboid joint probably related to avulsion fracture associated with the bifurcate ligament. No other areas raise concern for acute fractures. However, there is a small cortical projection anteriorly from the distal fibula that probably represents a remote avulsion fracture related to the anterior syndesmotic ligament. Incidental note is made of an os trigonum. There are degenerative cystic changes within the accessory ossification center and adjacent talus. SOFT TISSUES: Achilles tendon is grossly intact. There is small enthesophyte at the calcaneal attachment. Plantar fascia is grossly intact. There is a small enthesophyte at the calcaneal attachment. Anterior, medial, and peroneal tendons are grossly intact. There is avulsion of the anterior talofibular ligament from talus with a small bony fragment, age indeterminate. Calcaneal fibular ligament is grossly intact, but may be thickened. Posterior talofibular ligament is grossly intact. Anterior syndesmotic ligament is not well seen but probably intact. Posterior syndesmotic ligament is intact. There is increased attenuation in the medial clear space between talar dome and medial malleolus probably related to deltoid ligament complex versus blood products. CT/CT ankle RT wo IV con IMPRESSION: Midfoot (Chopart joint) injury. Suspected avulsion fractures related to the bifurcate ligament involving the cuboid and calcaneus. Minimal avulsion fracture involving inferior medial malleolus. Additionally, there is high attenuation in the medial clear space of the ankle mortise could be related either to blood products or displaced deltoid ligament complex fibers. Correlate for evidence of restricted range motion. Age-indeterminate avulsion of the anterior talofibular ligament from the talus, acute versus chronic. There is also age-indeterminate mild thickening of the calcaneofibular ligament. Remote healed avulsion fracture involving the fibular footprint of the anterior syndesmotic ligament. There is an os trigonum, which is a normal variant. However, there are degenerative cystic changes in the accessory ossification center and adjacent talus raising question of a symptomatic os trigonum. Correlate for evidence of posterior lateral ankle pain Electronically signed by: Shamar Ramos MD 03/07/2025 11:55 AM FRANK
--- OUTSIDE RECORDS SUMMARY | 2025-03-07 12:26 | XMS_ITS | Clinical Summary ---
Author Organization [facility] Address [address] [place] [address] Phone Care Team Providers Care Neurophysiology Tech Name Role Phone Stella Jara MD Primary [...] Type Department Care Team Description 12/16/2024 Telephone [facility] Cardiology [facility] [address] [place] [address] Stella Jara MD from Last 3 Months Immunizations Immunization Administration Dates Next Due DTaP (Infanrix) 6wks to less than 7yo ,11/14/2000,06/12/1999,04/06,01/16/1999 [id number] (Pentacel) 2mo to less than 5yo 02/26/2000,06/12/1999,04/06/1999,01/16 [...] yrs UPPER GASTROINTESTINAL ENDOSCOPY -2016 2017 PROCEDURE: [place] UPPER GI ENDOSCOPY PERFORMED COLONOSCOPY 09/16/2019 PROCEDURE: [...] Health Maintenance Due Date Last Done Comments Drug Screen 1998 Non-Opioid Controlled Substance Agreement 1998 [employer] of Health Screening 02/23/2022 Depression [...] * HIV Screening (08/28/2023) HIV Screening abstracted Historical Provider MD HEALTH MAINTENANCE Final Result * Hepatitis C Screening (08/28/2023) Hepatitis C Screening abstracted [facility] Provider MD HEALTH MAINTENANCE Final Result * Gonorrhea/Chlamydia Screening (08/27/2023) Gonorrhea/Chla mydia Screening abstracted [facility] Provider HEALTH MAINTENANCE Final Result * Pap smear (06/20/2023) 06/20/2023 Narrative HISTORICAL TESTING LAB RESULTING AGENCY - 06/25/2023 11:25 AM EDT [id number] THINPREP PAP, IMAGED: NEGATIVE FOR SQUAMOUS INTRAEPITHELIAL LESION AND MALIGNANCY RONY KUNZ(ASCP) (CASE ELECTRONICALLY SIGNED 06 25 2023) ADEQUACY: SATISFACTORY ENDOCERVICAL/TRANSFORMATION ZONE COMPONENT ABSENT. SOURCE: THINPREP PAP HPV IF ASCUS, CERVICAL, IMAGED CLINICAL INFORMATION: HPV IF DIAGNOSIS OF ASCUS. PAP HX NEGATIVE, [Z01.419]. Aracelis Brito CNM LAB CYTOLOGY ORDERABLES Fin al Result HISTORICAL [...] Recently Relevant to Health Maintenance Insurance [facility] Care Teams Neurophysiology Tech Relationship Specialty Start Date End Date Stella Jara MD [address] [place] [address] PCP - General 02/27/23
--- OUTSIDE RECORDS SUMMARY | 2025-03-07 12:26 | XMS_ITS | Clinical Summary ---
Author Organization [employer] Address [address] [facility] [address] [place] [address] Care Team Providers Care Tube Coverer Name Role Phone Unavailable Primary Care Provider [...]
== END 2025-03-07 10:17 ==
LOC: HO.CT 10:16
PROVIDERS: Visit Provider Physician Assistant
DX: S82.891A Other fracture of right lower leg, initial encounter for closed fracture (principal)
CPT/HCPCS: 73700

== ENCOUNTER → 2025-03-07 10:17 | Outpatient (BNV) | payer OTHER, SELFPAY | PROVIDERS: Visit Provider Radiology Diagnostic Radiology | DX: S82.54XA Nondisplaced fracture of medial malleolus of right tibia, initial encounter for closed fracture (principal); M25.571 Pain in right ankle and joints of right foot | CPT/HCPCS: 73700 ==

== ENCOUNTER 2025-03-09 08:26 | Outpatient (AMB) | payer OTHER, SELFPAY ==
--- OUTSIDE RECORDS SUMMARY | 2025-03-09 08:28 | XMS_ITS | Clinical Summary ---
Author Organization [facility] Address [address] [place] [address] Phone Care Team Providers Care Manager Strategy Name Role Phone Stella Jara MD Primary [...] Type Department Care Team Description 12/16/2024 Telephone [facility] Cardiology [facility] [address] [place] [address] Stella Jara MD from Last 3 Months Immunizations Immunization Administration Dates Next Due DTaP (Infanrix) 6wks to less than 7yo ,11/14/2000,06/12/1999,04/06,01/16/1999 [id number] (Pentacel) 2mo to less than 5yo 02/26/2000,06/12/1999,04/06/1999,01/16 [...] yrs UPPER GASTROINTESTINAL ENDOSCOPY -2016 2017 PROCEDURE: [place] UPPER GI ENDOSCOPY PERFORMED COLONOSCOPY 09/16/2019 PROCEDURE: [...] C Screening (08/28/2023) Hepatitis C Screening abstracted [facility] Provider MD HEALTH MAINTENANCE Final Result * Gonorrhea/Chlamydia Screening (08/27/2023) Gonorrhea/Chla mydia Screening abstracted [facility] Provider HEALTH MAINTENANCE Final Result * Pap smear (06/20/2023) 06/20/2023 Narrative HISTORICAL TESTING LAB RESULTING AGENCY - 06/25/2023 11:25 AM EDT [id number] THINPREP PAP, IMAGED: NEGATIVE FOR SQUAMOUS INTRAEPITHELIAL [...] Most Recently Relevant to Health Maintenance Insurance [facility] Care Teams Manager Strategy Relationship Specialty Start Date End Date Stella Jara MD [address] [place] [address] PCP - General 02/27/23
--- OUTSIDE RECORDS SUMMARY | 2025-03-09 08:28 | XMS_ITS | Clinical Summary ---
Author Organization [employer] Address [address] [facility] [address] [place] [address] Care Team Providers Care Accelerator Systems Director Name Role Phone Unavailable Primary Care Provider [...]
--- NOTE | 2025-03-09 08:39 | A.OFFVIS_ITS ---
Intake Visit Reasons: Oth.fx of unspe.lower leg,initial encoun.closed fx Intake Note: Oth.fx of unspe.lower leg,initial encoun.closed fx How and when did the injury occur? 02/14/25 workers comp How frequently do you sprain your ankle? no growth plate fractered when younger Have they used a boot or brace? kit in ortho If they have taken any pain medications? morphen taken at bed time 60 mg ibup evry 4 hours Do they have any x-rays or imaging? 03/07/[address] Allergies No Known Allergies Allergy (Verified 03/09/25 08:40) HPI HPI Oth.fx of unspe.lower leg,initial encoun.closed fx: Details: The patient is a 24 year old female presenting for evaluation of a right ankle and foot injury sustained in a fall. Left ankle and foot injury: The patient sustained an injury approximately three weeks ago after falling down a flight of stairs at work. She was seen in [facility] and referred for a CT scan which showed possible ligamentous injuries to her ankle as well as avulsion fractures in her foot. She has been ric-jsrfpr-anbwklk, using a tall boot and crutches. During the first week, she developed blisters on the bottom of her foot, which have since healed. The swelling has improved with compression wrapping, but her pain has not subsided and is associated with a burning sensation and hypersensitivity to touch. Patient had fracture blisters to her foot which her mother treated with local wound care, and has since appeared to have resolved. She was prescribed morphine 15 mg which she has been splitting and taking small doses of, along with tylenol arthritis 2 tabs twice a day and ibuprofen. The patient describes the pain as agonizing and reports being unable to sleep without pain medication. Medical History: - High blood pressure - History of syncope while on Zoloft - History of prior foot fractures and facial fractures Surgical History: - No prior surgical history was discussed. Medications: - Morphine 15 mg, taking partial doses for pain and sleep - Ibuprofen 600 mg every four hours - Wellbutrin - Methylphenidate Social History: - Employment: Works at [employer] - Functional Status: The patient is cjc-nlhbkf-sftjwyd on the left lower extremity and uses crutches for ambulation. Family History: - Mother is a nurse. [facility] Medical History (Updated 03/09/25 @ 11:17 by Mitchell Triplett DPM) No known health problems Social History Household Members: Family Patient Tobacco Use Status: Former Tobacco user Tobacco use type: Cigarette Substance Use Type: Marijuana Review of Systems Const All systems reviewed & are unremarkable except as noted in HPI and below Physical Exam Extrem Other: *Bilateral Lower Extremity Focused Foot/Ankle Exam Vascular: DP/PT 2/4, CFT<3s to digits, TG warm to cool, moderate right ankle edema, mild right forefoot edema, pedal hair present Derm: Mild ecchymosis present to the anterior ankle and foot. Neuro: Protective sensation grossly intact to bilateral lower extremities. Negative Tinel sign to the intermediate dorsal cutaneous nerve. Msk: Moderate pain on palpation along the right lateral ankle ligaments Moderate Pain on palpation along the deltoid ligament right ankle Moderate Pain on palpation along the syndesmosis right ankle No pain on palpation along the proximal fibula and fibular shaft right ankle Positive tib-fib squeeze test to the right ankle from mid leg down Unable to assess further stress exams due to guarding/pain Moderate tenderness on palpation of the 2nd, 3rd, and 4th tarsometatarsal joints of the right foot Moderate to severe tenderness on palpation of the plantar medial calcaneal tubercle right heel and along the plantar fascia, worse upon flexion of digits and on dorsiflexion of the ankle. After knee flexion, the patient is able to partially mobilize her digits and ankle with less guarding. Gait: Non weight-bearing to right lower extremity with crutches and Cam boot Office Procedures AMB Podiatry Dressing Details of Procedure: Procedure: Strapping of the foot/ankle Indication: Right ankle avulsion fractures, right foot sprain, right leg edema with fracture blisters Description: A compression wrap was applied using Webril/cast padding and 4in Iraj bandage with the ankle held in neutral position. Tolerance: Patient tolerated procedure well, no immediate complications. 08794 - Strapping of foot/ankle Procedure code (CPT) selection complete Assessment & Plan Assessment & Plan (1) Ankle syndesmosis disruption: Comment: Right ankle Code(s): S93.439A - Sprain of tibiofibular ligament of unspecified ankle, initial encou nter Category: Medical Qualifiers: Encounter type: initial encounter Laterality: right Qualified Code(s): S93.431A - Sprain of tibiofibular ligament of right ankle, initial encounter Plan: * There is a high probability of a syndesmotic injury. CT scan appears to show minimal tib-fib overlap, the patient has pain on tib-fib squeeze. * Surgical options were discussed, including syndesmosis repair with a plate and dynamic syndesmosis fixation, and potential deltoid ligament repair. * A STAT MRI of the right ankle was ordered for pre-operative surgical evaluation. The patient requires an MRI as there is significant concern for injury to the ankle deltoid ligament complex and the distal tibiofibular syndesmosis based on previous x-ray/CT scan, and physical exam findings of instability, and mechanism of injury. * We will plan for a diagnostic stress x-ray as well. The patient is currently unable to tolerate physical manipulation of the ankle and a stress x-ray at this time due to guarding would be inconclusive. * The patient will continue to be xgr-jpopcj-vkjepde in her CAM boot with crutches * A Silva compressive dressing was applied to the right lower extremity today * Rx Tramadol. Instructed the patient to alternate tramadol with tylenol arthritis (2) Tear of deltoid ligament of right ankle: Code(s): S93.421A - Sprain of deltoid ligament of right ankle, initial encounter Category: Medical Qualifiers: Encounter type: initial encounter Qualified Code(s): S93.421A - Sprain of deltoid ligament of right ankle, initial encounter Plan: * CT scan with avulsion fragment of the medial malleolus and suspicion for deltoid injury * Pending MRI right ankle (3) Plantar fascia rupture: Code(s): S93.699A - Other sprain of unspecified foot, initial encounter Category: Medical Qualifiers: Encounter type: initial encounter Laterality: right Qualified Code(s): S93.691A - Other sprain of right foot, initial encounter Plan: * Discussed possible plantar fascia injury based on her pain worse to her heels. She does have a bifurcate ligament injury however, pain is typically worse to the dorsal and lateral aspect of the foot in that setting. * Referred for a right foot MRI to evaluate for plantar fascia rupture Orders: Orders MR ankle RT wo con Today S93.421A - Sprain of deltoid ligament of right ankle, initial encounter, S93.439A - Sprain of tibiofibular ligament of unspecified ankle, initial encounter, S93.699A - Other sprain of unspecified foot, initial encounter MR foot RT wo con Today S93.629A - Sprain of tarsometatarsal ligament of unspecified foot, initial encounter, S93.699A - Other sprain of unspecified foot, initial encounter AMB Podiatry Dressing Today S93.421A - Sprain of deltoid ligament of right ankle, initial encounter, S93.439A - Sprain of tibiofibular ligament of u nspecified ankle, initial encounter, S93.629A - Sprain of tarsometatarsal ligament of unspecified foot, initial encounter, S93.699A - Other sprain of unspecified foot, initial encounter Coding Level of Care Code New Pt Level 4 (38270) Diagnoses Syndesmotic disruption of right ankle, initial encounter S93.431A Encounter type: initial encounter Laterality: right Tear of deltoid ligament of right ankle, initial encounter S93.421A Encounter type: initial encounter Rupture of plantar fascia of right foot, initial encounter S93.691A Encounter type: initial encounter Laterality: right CPT Codes Podiatry Dressing - CPT: 52250 - Strapping of foot/ankle ([id number]) Time Spent (min) 45
== END 2025-03-09 09:41 | disposition home or self-care (01) ==
LOC: HO.HPODS 08:26
PROVIDERS: Visit Provider Student in an Organized Health Care Education/Training Program
DX: S93.431A Sprain of tibiofibular ligament of right ankle, initial encounter (principal); S93.421A Sprain of deltoid ligament of right ankle, initial encounter; S93.621A Sprain of tarsometatarsal ligament of right foot, initial encounter
CPT/HCPCS: 29540; 99203

== ENCOUNTER → 2025-03-09 08:26 | Outpatient (BNVA) | payer OTHER, SELFPAY | PROVIDERS: Visit Provider Student in an Organized Health Care Education/Training Program | DX: S93.431A Sprain of tibiofibular ligament of right ankle, initial encounter (principal); W10.8XXA Fall (on) (from) other stairs and steps, initial encounter; Y99.0 Civilian activity done for income or pay; Y93.9 Activity, unspecified; Y92.238 Other place in hospital as the place of occurrence of the external cause; S93.421A Sprain of deltoid ligament of right ankle, initial encounter; S93.691A Other sprain of right foot, initial encounter | CPT/HCPCS: 29540; 99202 ==